=== PATIENT | female | born 1960 | race Two or more races ===

== ENCOUNTER 2017-12-25 22:15 | Emergency (ER) | payer OTHER ==
[~2017-12-25] VITALS: Ht 165.1 cm; Wt 81.6 kg
[2017-12-25 22:23] VITALS: BP 165/95
[2017-12-26] MEDS ORDERED: ACYCLOVIR 200 MG CAPSULE PO ONE
[2017-12-26] MEDS ORDERED: ACYCLOVIR 200 MG CAPSULE ONE (00:01)
== END 2017-12-26 00:14 | disposition home or self-care (01) ==
LOC: ER 22:15
DX: B02.9 Zoster without complications (principal)
CPT/HCPCS: A4606; Z7610

== ENCOUNTER 2022-10-29 20:34 | Emergency (ER) | payer MEDICAID, OTHER ==
[~2022-10-29] VITALS: Ht 154.9 cm; Wt 74.8 kg
[2022-10-29] MEDS ORDERED: LIDOCAINE 5% (PATCH) 1 EA PATCH TP ONE (22:16)
[2022-10-29] MEDS ORDERED: KETOROLAC TROMETHAMINE INJ 30 MG/ML VIAL ONE (22:16)
[2022-10-29] MEDS ORDERED: CYCLOBENZAPRINE 10 MG TABLET ONE (22:16)
[2022-10-29] MEDS ORDERED: CYCLOBENZAPRINE 10 MG TABLET PO ONE (22:30)
[2022-10-29] MEDS ORDERED: KETOROLAC TROMETHAMINE INJ 60 MG/2 ML VIAL IM ONE (22:30)
[2022-10-29] MEDS ORDERED: LIDOCAINE 5% (PATCH) 1 EA PATCH TP SCH (22:30)
[2022-10-29] MEDS ORDERED: LIDO30AD10 TP (22:56)
[2022-10-29] MEDS ORDERED: CYCL5TAB PO (22:56)
[2022-10-29 23:07] VITALS: BP 138/92
--- NOTE | 2022-10-29 23:07 | NUR ---
Patient discharged to home in stable condition. Written and verbal after care instructions given. Patient verbalizes understanding of instruction.
== END 2022-10-29 23:08 | disposition home or self-care (01) ==
LOC: ER 20:36
DX: M54.50 Low back pain, unspecified (principal)
CPT/HCPCS: 99283; 96372; J1885